=== PATIENT | male | born 1955 | race Two or more races ===

== ENCOUNTER → 2016-12-18 | Outpatient (CLI) | payer OTHER ==
[~2016-12-18] MED LIST: REGADENOSON 0.4 MG/5 ML DISP.SYRIN. IV ONE
--- NOTE | 2016-12-18 12:04 | PCVCIMAG ---
APPROVED REPORT Study performed: 12/18/2016 10:59:16 EXAM: Comprehensive 2D, Doppler, and color-flow Echocardiogram Patient Location: Echo lab Status: routine Other Information Study Quality: Adequate Risk Factors: Cardiac Risk Factors: HTN, SOB Indications Abnormal ECG Dyspnea 2D Dimensions LVEF(%): 39.88 (>50%) IVSd: 13.26 (7-11mm) LVDd: 46.11 mm PWd: 11.90 (7-11mm) LVDs: 37.19 (25-40mm) Left Atrium: 43.99 (27-40mm) Aortic Root: 31.69 mm LV Single Plane 4CH: 65.35 % LV Single Plane 2CH: 66.57 %Pope's LVEF: 65.96 % Biplane EF: 65.2 % Volumes Left Atrial Volume (Systole) Single Plane 4CH: 109.90 mLSingle Plane 2CH: 92.95 mL LA ESV Index: 44.00 mL/m2 Aortic Valve AoV Peak Edgar.: 1.75 m/s AO Peak Gr.: 12.23 mmHgLVOT Max P.96 mmHg LVOT Max V: 1.32 m/s Mitral Valve E/A Ratio: 0.8 MV Decel. Time: 276.35 ms MV E Max Edgar.: 1.15 m/s MV A Edgar.: 1.43 m/s IVRT: 100.35 ms Pulmonary Valve PV Peak Edgar.: 1.58 m/sPV Peak Gr.: 10.01 mmHg Pulmonary Vein P Vein S: 0.33 m/sP Vein A: 0.31 m/s P Vein D: 0.41 m/sP Vein A Dur.: 124.6 msec P Vein S/D Ratio: 0.80 Tricuspid Valve TR Peak Edgar.: 2.57 m/s TR Peak Gr.: 26.46 mmHg Left Ventricle The left ventricle is normal size. There is normal LV segmental wall motion. Mild concentric left ventricular hypertrophy. Left ventricular systolic function is normal. The left ventricular ejection fraction is within the normal range. LVEF is 60-65%. Grade I - abnormal relaxation pattern. Right Ventricle The right ventricle is normal size. The right ventricular systolic function is normal. Atria Left atrium is moderately dilated. Right atrium is mildly dilated. Aortic Valve The aortic valve is normal in structure. No aortic regurgitation is present. There is no aortic valvular stenosis. Mitral Valve Mild mitral annular calcification. There is no mitral valve regurgitation noted. No evidence of mitral valve stenosis. Tricuspid Valve The tricuspid valve is normal in structure. Mild tricuspid regurgitation with PAP of 33 mmHg. Pulmonic Valve The pulmonary valve is normal in structure. There is no pulmonic valvular regurgitation. Great Vessels The aortic root is normal in size. IVC is normal in size and collapses with >50% inspiration Pericardium There is no pericardial effusion. <Conclusion> The left ventricle is normal size. LVEF is 60-65%. Left atrium is moderately dilated. Right atrium is mildly dilated. The aortic valve is normal in structure. Mild mitral annular calcification. The tricuspid valve is normal in structure. Mild tricuspid regurgitation with PAP of 33 mmHg. The pulmonary valve is normal in structure.
== END | disposition home or self-care (01) ==
LOC: PCVCIMAG 11:02
PROVIDERS: ATTEND Internal Medicine
DX: I07.1 Rheumatic tricuspid insufficiency (principal); I10 Essential (primary) hypertension; R94.31 Abnormal electrocardiogram [ECG] [EKG]
CPT/HCPCS: 93306; J2785